=== PATIENT | male | born 1995 | race Caucasian/White ===

== ENCOUNTER 2019-11-01 16:48 | Emergency (ER) | payer MEDICAID ==
[~2019-11-01] VITALS: Ht 160 cm; Wt 77.1 kg
[2019-11-01 17:14] LABS: URINE BILIRUBIN NEGATIVE (Negative); URINE BLOOD NEGATIVE (Negative); URINE CLARITY CLEAR; URINE COLOR YELLOW; URINE GLUCOSE-RANDOM NEGATIVE (Negative); URINE KETONES NEGATIVE (Negative); URINE LEUKOCYTES-REFLEX NEGATIVE (Negative); URINE NITRITE-REFLEX NEGATIVE (Negative); URINE PROTEIN NEGATIVE (Negative); URINE SPECIFIC GRAVITY 1.015 (1.005-1.030); URINE UROBILINOGEN 0.2 E.U./dl (0.2-1.0)
[2019-11-01 17:22] LABS: AMP/METHAMP Negative (Negative); BARBITURATES Negative (Negative); BENZODIAZEPINES Negative (Negative); COCAINE Negative (Negative); METHADONE Negative (Negative); OPIATES Negative (Negative); PCP Negative (Negative); THC Negative (Negative)
[2019-11-01 17:50] LABS: ABSOLUTE BASOPHILS 0.1 thou/uL (0.0-0.2); ABSOLUTE EOSINOPHILS 0.1 thou/uL (0.0-0.7); ABSOLUTE LYMPHOCYTES 1.4 thou/uL (0.8-5.3); ABSOLUTE MONOCYTES 0.3 thou/uL (0.0-1.2); ABSOLUTE NEUTROPHILS 5.3 thou/uL (1.6-8.1); BASOPHILS 0.8 %; EOSINOPHILS 0.8 %; HEMATOCRIT 35.2 % (42.0-52.0); HEMOGLOBIN 11.5 gm/dL (14.0-18.0); LYMPHOCYTES 19.8 %; MCH 24.9 pg (26.0-34.0); MCHC 32.7 g/dL (28.0-37.0); MCV 75.9 fL (80.0-100.0); MONOCYTES 4.8 %; MPV 9.2 fl. (7.2-11.1); NUCLEATED RBCS 0 /100WBC; PLATELET COUNT* 244 thou/uL (150-400); POLYS 73.8 %; RBC 4.64 mil/uL (4.50-6.00); RDW-CV 16.1 % (10.5-14.5); WBC 7.2 thou/uL (4.0-11.0)
[2019-11-01 18:00] LABS: CALCIUM 8.6 mg/dL (8.5-10.1); POTASSIUM 4.4 mmol/L (3.5-5.1)
[2019-11-01 18:04] LABS: ALBUMIN 3.5 g/dL (3.4-5.0); TOTAL BILIRUBIN 0.2 mg/dL (<0.1-1.0); TOTAL PROTEIN 6.8 g/dL (6.4-8.2)
[2019-11-01 18:12] LABS: ACETAMINOPHEN < 2 ug/mL (10-30); ALCOHOL < 10 mg/dL (<10); SALICYLATE < 2.8 mg/dL (2.8-20.0)
[2019-11-01] MEDS ORDERED: SERTRALINE HCL100 MG PO (20:43)
[2019-11-01] MEDS ORDERED: CHILDREN'S ZYRT10 M1 PO (20:44)
[2019-11-01] MEDS ORDERED: MONTELUKAST SODI4 M1 PO (20:45)
[2019-11-01] MEDS ORDERED: FERREX 150150 MG PO (20:45)
[2019-11-01] MEDS ORDERED: ZANTAC 150MG T150 M1 PO (20:46)
[2019-11-01] MEDS ORDERED: VITAMIN D21250 MCG PO (20:47)
[2019-11-01] MEDS ORDERED: GEODON40 MG PO (20:48)
[2019-11-01] MEDS ORDERED: OMEPRAZOLE40 MG PO (20:49)
[2019-11-01] MEDS ORDERED: CHILDREN'S FLO5.9 ML INH (20:49)
[2019-11-01] MEDS ORDERED: OXTELLAR XR300 MG PO (20:50)
[2019-11-01] MEDS ORDERED: DEPAKOTE ER500 M1 PO (20:51)
[2019-11-01] MEDS ORDERED: CLONAZEPAM 0.50.5 M1 PO (20:53)
[2019-11-01] MEDS ORDERED: SODIUM CHLORIDE1 G2 PO (20:53)
[2019-11-01] MEDS ORDERED: GEODON60 MG PO (20:54)
[2019-11-01] MEDS ORDERED: TRAZODONE 150150 M1 PO (20:54)
[2019-11-01] MEDS ORDERED: SEROQUEL XR400 MG PO (20:55)
[2019-11-01 23:40] VITALS: BP 126/72
== END 2019-11-01 23:40 | disposition home or self-care (01) ==
LOC: M.ERS 16:48
PROVIDERS: Emergency Medicine
DX: F91.9 Conduct disorder, unspecified (principal); R45.851 Suicidal ideations; F31.9 Bipolar disorder, unspecified; F84.0 Autistic disorder; Z91.040 Latex allergy status; Z88.6 Allergy status to analgesic agent